=== PATIENT | female | born 1950 | race Caucasian/White ===

== ENCOUNTER → 2016-07-28 | Day surgery (SDC) | payer MEDICARE, OTHER ==
[~2016-07-28] MED LIST: ACYCLOVIR800 MG PO; ANASTROZOLE1 MG PO; BACTROBAN 2% C1 INCH EX; COL-RITE100 MG PO; CREON1 ECC PO; ETOLDOLAC400 MG PO; FISH OIL500 MG PO; HYDROCHLOROTHIA25 M1 PO; INSULIN GL100 UNITS/ SC; K-DUR 20MEQ TA20 MEQ PO; LEVAQUIN500 MG PO; LEXAPRO 10 MG T10 MG PO; LOPERAMIDE2 MG PO; LOTRIMIN1% TP; LOVENOX80 MG/0.1 SC; MECLIZINE 25MG25 MG PO; METFORMIN 500M500 M1 PO; METOCLOPRAMIDE H5 MG PO; PANTOPRAZOLE SO40 M1 PO; PREDNISONE 20MG20 MG PO; SENNA-LAX8.6 MG PO; SEPTRA DS 800 M1 TA1 PO; VITAMIN D400 IU PO; VITAMIN D400 UNI1 PO; XARELTO20 MG PO; ZOFRAN ODT8 MG PO; Zofran4 MG PO
--- NOTE | 2016-07-28 13:00 | Operative Note-Urology ---
Procedure/Operative Record Procedure DATE OF PROCEDURE: 07/28/16 PREOPERATIVE DIAGNOSIS: History of gross hematuria POSTOPERATIVE DIAGNOSIS: Same secondary to urethritis and vaginal atrophy PROCEDURE PERFORMED: Flexible local cystoscopy SURGEON: Umesh Medley ANESTHESIA: Local BRIEF HISTORY: Patient is 65 years of age and recently noted to have gross painless hematuria intermittently. He has history of pancreatic cancer resection one year ago at the [facility]. She recently had the above symptoms and presents for cystoscopy. She's had a CT scan which shows no urologic abnormalities. OPERATIVE NOTE: In the supine position the genital area was prepped and draped in standard fashion. She had some mild retraction of the urethral meatus. The area was cleansed. Xylocaine jelly was instilled. The flexible cystoscope was inserted. Bladder was inspected entirely. There was no evidence of bladder tumor. Ureteral orifices were situated in the normal position and appeared to efflux clear urine. The most proximal ureter urethra did have very prominent vasculature. Otherwise unremarkable. Scope was retroflexed to the bladder neck no tumors were noted. EBL (ml): 0 IMPRESSION: Hematuria likely secondary to urethritis/atrophy with prominent submucosal vasculature PLAN: We will try Estrace cream applied sparingly each bedtime. She will followup in 2 months. at [id number]
[2016-07-28 14:26] VITALS: BP 132/97
== END ==
LOC: SDC 09:30
PROVIDERS: Urology
PROC: 0TJB8ZZ Inspection of Bladder, Via Natural or Artificial Opening Endoscopic (ICD-10-PCS; principal; 2016-07-28 10:00)
DX: N34.2 Other urethritis (principal); R31.0 Gross hematuria; N95.2 Postmenopausal atrophic vaginitis

== ENCOUNTER 2017-02-22 13:45 | Outpatient (CLI) | payer MEDICARE, OTHER ==
[~2017-02-22 13:45] MED LIST changes: +LIPITOR40 MG PO; +LORATADINE 10MG10 M1 PO; +NOVOLOG FLEX100 U/ML SC
== END 2017-02-22 14:15 | disposition home or self-care (01) ==
LOC: COP 13:45
DX: C7A.8 Other malignant neuroendocrine tumors (principal); Z45.2 Encounter for adjustment and management of vascular access device
CPT/HCPCS: J1642

== ENCOUNTER 2017-04-22 10:05 | Outpatient (CLI) | payer MEDICARE, OTHER ==
[~2017-04-22 10:05] MED LIST changes: +FLONASE ALLERG9.9 ML NS; +GABAPENTIN100 M1 PO
== END 2017-04-22 13:50 | disposition home or self-care (01) ==
LOC: COP 10:05
DX: Z45.2 Encounter for adjustment and management of vascular access device (principal)
CPT/HCPCS: J1642